=== PATIENT | female | born 1955 | race Caucasian/White ===

== ENCOUNTER 2020-05-10 04:20 | Emergency (ER) | payer OTHER ==
[2020-05-10 05:49] LABS: BASOPHIL 0.7 % (0-2); EOSINOPHIL 3.8 % (0-7); HCT 42.4 % (37.0-47.0); HGB 12.9 g/dl (12.5-16.0); MCH 23.2 pg (25.0-31.0); MCHC 30.4 g/dL (32.0-36.0); MCV 76.1 fL (78.0-100.0); MONOCYTE 8.5 % (0-12); NEUTROPHIL 56.7 % (41-80); NRBC 0.5; PLT 369 K/uL (150-400); RBC 5.57 M/uL (4.20-5.40); RDW 20.1 % (11.5-14.0); WBC 12.2 K/uL (4.0-10.5)
[2020-05-10 06:12] LABS: BILIRUBIN NEGATIVE (NEGATIVE); BLOOD NEGATIVE Ery/uL (NEGATIVE); CLARITY CLEAR (CLEAR); COLOR YELLOW (YELLOW); GLUCOSE (U) NORMAL (NORMAL); LEUKOCYTES NEGATIVE Leu/uL (NEGATIVE); NITRITE NEGATIVE (NEGATIVE); PROTEIN TRACE (LOW) mg/dL (NEGATIVE); UROBILINOGEN 0.2 mg/dL (0.2-1.0); pH 6.5 (5.0-9.0)
[2020-05-10 06:20] LABS: URINARY RBC RARE; URINARY WBC RARE
[2020-05-10 06:33] LABS: ALBUMIN 3.4 g/dL (3.4-5.0); BILIRUBIN - TOTAL 0.3 mg/dL (0.2-1.0); BUN/CREAT RATIO (CALC) 10.8 RATIO; CREATININE 1.58 mg/dL (0.51-0.95); GLOBULIN (CALCULATION) 3.8 g/dL; POTASSIUM 3.5 mmol/L (3.5-5.1); TOTAL PROTEIN 7.2 g/dL (6.4-8.2)
== END 2020-05-10 11:07 | disposition other institution (70) ==
LOC: FER 04:20
PROVIDERS: Emergency Medicine
DX: I21.4 Non-ST elevation (NSTEMI) myocardial infarction (principal); R10.11 Right upper quadrant pain; R10.13 Epigastric pain; F17.210 Nicotine dependence, cigarettes, uncomplicated; N18.9 Chronic kidney disease, unspecified; Z88.0 Allergy status to penicillin; Z88.8 Allergy status to other drugs, medicaments and biological substances; Z88.6 Allergy status to analgesic agent; Z88.5 Allergy status to narcotic agent; Z88.2 Allergy status to sulfonamides; Z20.822 Contact with and (suspected) exposure to COVID-19
CPT/HCPCS: 36415; 71045; 80053; 81001; 83690; 84484; 85025; 87339; 93005; C9113; J1170; J1644; J2405; U0002

== ENCOUNTER 2020-10-14 15:01 | Emergency (ER) | payer OTHER ==
[2020-10-14 16:18] LABS: EOSINOPHIL 3.1 % (0-7); HCT 40.8 % (37.0-47.0); HGB 12.3 g/dl (12.5-16.0); LYMPHOCYTE 29.8 % (15-48); MCH 21.4 pg (25.0-31.0); MCHC 30.1 g/dL (32.0-36.0); MONOCYTE 7.8 % (0-12); MPV 9.8 fL (6.0-9.5); NEUTROPHIL 58.1 % (41-80); NRBC 0.6; PLT 437 K/uL (150-400); RBC 5.75 M/uL (4.20-5.40); RDW 20.9 % (11.5-14.0); WBC 8.4 K/uL (4.0-10.5)
[2020-10-14 16:39] LABS: ALBUMIN 3.7 g/dL (3.4-5.0); BILIRUBIN - TOTAL 0.4 mg/dL (0.2-1.0); BUN/CREAT RATIO (CALC) 10.8 RATIO; C-REACTIVE PROTEIN 0.3 mg/dL (<=0.90); CREATININE 1.76 mg/dL (0.51-0.95); GLOBULIN (CALCULATION) 4.4 g/dL; POTASSIUM 3.5 mmol/L (3.5-5.1); TOTAL PROTEIN 8.1 g/dL (6.4-8.2)
[2020-10-14] MEDS ORDERED: ROBAXIN750 MG PO (21:22)
[2020-10-14] MEDS ORDERED: PERCOCET 5-3251 EACH PO (21:22)
[2020-10-14] MEDS ORDERED: DIFLUCAN 100MG100 MG PO (21:33)
== END 2020-10-14 21:40 | disposition home or self-care (01) ==
LOC: FER 15:01
PROVIDERS: Emergency Medicine Emergency Medical Services
DX: E11.22 Type 2 diabetes mellitus with diabetic chronic kidney disease (principal); N18.9 Chronic kidney disease, unspecified; M54.12 Radiculopathy, cervical region; M48.02 Spinal stenosis, cervical region; I25.2 Old myocardial infarction; I50.9 Heart failure, unspecified; J44.9 Chronic obstructive pulmonary disease, unspecified; F17.210 Nicotine dependence, cigarettes, uncomplicated; Z88.0 Allergy status to penicillin; Z88.2 Allergy status to sulfonamides; Z88.5 Allergy status to narcotic agent; Z88.6 Allergy status to analgesic agent; Z88.8 Allergy status to other drugs, medicaments and biological substances; Z91.040 Latex allergy status
CPT/HCPCS: 36415; 70450; 71045; 72125; 80053; 85025; 86140; 93005; J1100; J1170; J1885; J1940; J2405; J2800; J3360; J7050

== ENCOUNTER 2020-10-31 11:45 | Emergency (ER) | payer OTHER ==
[~2020-10-31 11:45] MED LIST: DIFLUCAN 100MG100 MG PO; PERCOCET 5-3251 EACH PO; ROBAXIN750 MG PO
[2020-10-31 12:18] LABS: EOSINOPHIL 2.2 % (0-7); HCT 41.9 % (37.0-47.0); HGB 12.8 g/dl (12.5-16.0); LYMPHOCYTE 31.1 % (15-48); MCH 21.5 pg (25.0-31.0); MCHC 30.5 g/dL (32.0-36.0); MCV 70.3 fL (78.0-100.0); MONOCYTE 10.3 % (0-12); MPV 8.8 fL (6.0-9.5); NEUTROPHIL 55.2 % (41-80); NRBC 0.2; PLT 384 K/uL (150-400); RBC 5.96 M/uL (4.20-5.40); RDW 21.2 % (11.5-14.0); WBC 8.3 K/uL (4.0-10.5)
[2020-10-31 12:24] LABS: INR 1.14 (0.9-1.2); PTT 26.9 SECONDS (24.4-34.7)
[2020-10-31 12:35] LABS: ALBUMIN 3.8 g/dL (3.4-5.0); BILIRUBIN - TOTAL 0.4 mg/dL (0.2-1.0); BUN/CREAT RATIO (CALC) 11.9 RATIO; CREATININE 1.77 mg/dL (0.51-0.95); GLOBULIN (CALCULATION) 4.4 g/dL; POTASSIUM 4.1 mmol/L (3.5-5.1); TOTAL PROTEIN 8.2 g/dL (6.4-8.2)
== END 2020-10-31 15:00 | disposition home or self-care (01) ==
LOC: FER 11:45
PROVIDERS: Emergency Medicine
DX: R07.89 Other chest pain (principal); M54.2 Cervicalgia; G89.29 Other chronic pain; I10 Essential (primary) hypertension; F17.210 Nicotine dependence, cigarettes, uncomplicated; Z88.2 Allergy status to sulfonamides; Z91.040 Latex allergy status; Z88.8 Allergy status to other drugs, medicaments and biological substances; Z88.0 Allergy status to penicillin; Z88.6 Allergy status to analgesic agent; Z79.899 Other long term (current) drug therapy; Z79.02 Long term (current) use of antithrombotics/antiplatelets
CPT/HCPCS: 36415; 71045; 72040; 80053; 84484; 85025; 85610; 85730; 93005; J1100